=== PATIENT | male | born 1975 | race Caucasian/White ===

== ENCOUNTER 2019-12-02 21:37 | Emergency (ER) | payer OTHER, SELFPAY ==
[2019-12-02] MEDS ORDERED: ONDANSETRON 4 MG/2 ML VIAL ONE (22:29)
[2019-12-02] MEDS ORDERED: MORPHINE 4 MG/ML SYR ONE ×2 (22:29→23:30)
[2019-12-02] MEDS ORDERED: PANTOPRAZOLE 40 MG INJ ONE (22:29)
[2019-12-02 22:35] LABS: Absolute Lymphocytes (CBC) 1.3 K/uL (0.7-4.9); Basophils % 0.2 % (0-1.3); Hematocrit 48.7 % (39.6-49.0); Lymphocytes % 11.5 % (15.3-44.8); MPV 9.9 fL (7.6-11.3); RBC Red Blood Cell Count 5.33 M/uL (4.33-5.43)
[2019-12-02 22:53] LABS: Protime INR 0.93
[2019-12-02 23:52] LABS: Urine Bacteria <20 /HPF (NONE SEEN); Urine Culture Reflex Order NOT NEEDED; Urine RBC <5 /HPF (NONE SEEN)
[2019-12-02 23:54] LABS: ALT/SGPT 86 U/L (12-78); Albumin 3.7 g/dL (3.4-5.0); Alkaline Phosphatase 96 U/L (45-117); BUN Blood Urea Nitrogen 22 mg/dL (7-18); Bicarbonate 23 mmol/L (21-32); Bilirubin Direct < 0.1 mg/dL (0-0.2); Bilirubin Total 0.4 mg/dL (0.2-1.0); Glucose Level 211 mg/dL (74-106); Lipase 207 U/L (73-393); Magnesium 2.1 mg/dL (1.8-2.4); Protein, Total 7.1 g/dL (6.4-8.2); Sodium Level 139 mmol/L (136-145); Troponin (Emerg Dept Use Only) < 0.02 ng/mL (0.0-0.045)
[2019-12-02 23:55] LABS: AST/SGOT 25 U/L (15-37); Potassium 3.7 mmol/L (3.5-5.1)
--- NOTE | 2019-12-03 01:17 | ER ---
Nurse's Notes [facility] Name: Nj Hein Age: 44 yrs Sex: Male : 1975 Arrival Date: 12/02/2019 Time: 21:39 Bed 24 Private MD: Diagnosis: Upper abdominal pain, unspecified Presentation: 12/02 21:42 Presenting complaint: Patient states: RUQ pain started yesterday. Reports severe ca1 nausea. Denies fever, vomiting and diarrhea. History of pancreatitis and gall stones. Transition of care: patient was not received from another setting of care. Onset of symptoms was December 02, 2019. Risk Assessment: Do you want to hurt yourself or someone else? Patient reports no desire to harm self or others. Initial Sepsis Screen: Does the patient meet any 2 criteria? No. Patient's initial sepsis screen is negative. Does the patient have a suspected source of infection? No. Patient's initial sepsis screen is negative. Care prior to arrival: None. 21:42 Method Of Arrival: Ambulatory ca1 21:42 Acuity: CLARENCE 3 ca1 Historical: - Allergies: 21:48 No Known Allergies; ca1 - Home Meds: 21:48 allopurinol 300 mg Oral tab 1 tab once daily [Active]; Nexium 40 mg Oral cpDR 1 cap ca1 once daily [Active]; colchicine 0.6 mg Oral cap 1 cap once daily [Active]; amlodipine 10 mg tab 1 tab once daily [Active]; glipizide 5 mg Oral tab 1 tab 2 times per day [Active]; Lisinopril Oral [Active]; fenofibrate oral oral [Active]; Lipitor Oral [Active]; rosuvastatin oral oral [Active]; - PMHx: 21:48 Gout; Hyperlipidemia; Diabetes - NIDDM; CAD; Pancreatitis; ca1 - PSHx: 21:48 Heart stents; ca1 - Immunization history:: Adult Immunizations up to date, Flu vaccine is not up to date. - Social history:: Smoking status: Patient uses tobacco products, smokes one pack cigarettes per day. - Ebola Screening: : Patient negative for fever greater than or equal to 101.5 degrees Fahrenheit, and additional compatible Ebola Virus Disease symptoms Patient denies exposure to infectious person Patient denies travel to an Ebola-affected area in the 21 days before illness onset No symptoms or risks identified at this time. Screenin:08 Abuse screen: Denies threats or abuse. Denies injuries from another. Nutritional mg2 screening: No deficits noted. Tuberculosis screening: No symptoms or risk factors identified. Fall Risk IV access (20 points). Assessment: 23:06 General: Appears in no apparent distress. comfortable, Behavior is calm, cooperative. mg2 Pain: Complains of pain in abdomen Pain radiates to back Pain currently is 9 out of 10 on a pain scale. Quality of pain is described as aching, Pain began gradually, Is intermittent. Neuro: Level of Consciousness is awake, alert, obeys commands, Oriented to person, place, time, situation. Cardiovascular: Capillary refill < 3 seconds Patient's skin is warm and dry. Respiratory: Airway is patent Respiratory effort is even, unlabored, Respiratory pattern is regular, symmetrical. GI: Bowel sounds present X 4 quads. Abd is soft X 4 quads Abdomen is tender to palpation Reports upper abdominal pain, nausea. : No signs and/or symptoms were reported regarding the genitourinary system. EENT: No signs and/or symptoms were reported regarding the EENT system. Derm: Skin is intact, is healthy with good turgor, Skin is pink, warm \T\ dry. normal. Musculoskeletal: Circulation, motion, and sensation intact. Capillary refill < 3 seconds. 23:29 Reassessment: Patient appears in no apparent distress at this time. Patient and/or mg2 family updated on plan of care and expected duration. Pain level reassessed. Patient is alert, oriented x 3, equal unlabored respirations, skin warm/dry/pink. patient is still in pain, provider informed and ordered to give more pain medicine. 12/03 00:40 Reassessment: Patient appears in no apparent distress at this time. Patient and/or dm5 family updated on plan of care and expected duration. Pain level reassessed. Patient is alert, oriented x 3, equal unlabored respirations, skin warm/dry/pink. pt states he is still in pain. Provider notified. Pt offered Toradol or a GI cocktail. Pt refused. Offered patient glycerin swabs for dry mouth but patient refused. Pt had requested ice chips but provider denied until we get all results back. Vital Signs: 12/02 21:48 BP 142 / 82; Pulse 92; Resp 19 S; Temp 97.7(O); Pulse Ox 96% on R/A; Weight 108.86 kg ca1 (R); Height 6 ft. 0 in. (182.88 cm) (R); Pain 10/10; 23:09 Pulse 77; Resp 18; Temp 98; Pulse Ox 96% on R/A; mg2 23:30 BP 130 / 78; Pulse 75; Resp 18; Temp 98; Pulse Ox 97% on 2 lpm NC; mg2 12/03 00:45 BP 123 / 74; Pulse 65; Resp 18; Pulse Ox 97% on R/A; dm5 12/02 21:48 Body Mass Index 32.55 (108.86 kg, 182.88 cm) ca1 ED Course: 12/02 21:39 Patient arrived in ED. cl3 21:44 Triage completed. ca1 21:48 Arm band placed on right wrist. ca1 21:50 Pedro Michel PA is PHCP. cp 21:50 Pedro Clarke MD is Attending Physician. cp 22:07 Initial lab(s) drawn, by me, sent to lab. Inserted saline lock: 20 gauge in right lt1 antecubital area, using aseptic technique. 22:24 Christopher Quarles, RN is Primary Nurse. mg2 22:44 CXR XRAY In Process Unspecified. EDMS 23:08 Patient has correct armband on for positive identification. nurse monitoring on. Pulse mg2 ox on. NIBP on. Door closed. Warm blanket given. 23:09 US Abdomen Limited In Process Unspecified. EDMS 23:09 No provider procedures requiring assistance completed. mg2 23:12 Radiology exam delayed due to lab results not completed at this time. (BUN/Creatinine). kw1 23:27 Radiology exam delayed due to lab results not completed at this time. (BUN/Creatinine). kw1 23:47 Radiology exam delayed due to lab results not completed at this time. (BUN/Creatinine). kw1 23:59 Report given to JENNIFER Weinberg. mg2 12/03 01:57 CT Abd/Pelvis - IV Contrast Only In Process Unspecified. EDMS Administered Medications: 12/02 22:31 Drug: Zofran 4 mg Route: IVP; Site: right antecubital; mg2 23:21 Follow up: Response: No adverse reaction; Marked relief of symptoms mg2 22:31 Drug: morphine 4 mg Route: IVP; Site: right antecubital; mg2 23:20 Follow up: Response: No adverse reaction; Marked relief of symptoms mg2 22:31 Drug: ProTONIX 40 mg Route: IVP; Site: right antecubital; mg2 23:20 Follow up: Response: No adverse reaction mg2 22:59 Drug: NS 0.9% 1000 ml Route: IV; Rate: 1000 ml/hr; Site: right antecubital; mg2 23:29 Drug: morphine 4 mg Route: IVP; Site: right antecubital; mg2 12/03 00:01 Follow up: Response: No adverse reaction; RASS: Alert and Calm (0) mg2 Outcome: 01:03 Discharge ordered by MD. wilson 01:32 Patient left the ED. dm5 Signatures: Dispatcher [employer] EDOpal Alfred, RN RN dm5 Pedro Michel PA PA cp Wilhelm, Kimberly kw1 Christopher Quarles RN RN mg2 Joceline Harris RN RN ca1 Abdi, Anna 1 Gonzalo Delgado cl3 Corrections: (The following items were deleted from the chart) 12/02 21:55 21:42 Presenting complaint: Patient states: RUQ pain started yesterday. Reports severe ca1 nausea. Denies fever, vomiting and diarrhea ca1 12/03 00:01 12/02 23:59 Report given to KAREEN eWinberg mg2 mg2
--- NOTE | 2019-12-03 01:23 | EDPHYS ---
Physician Documentation [facility] Name: Nj Hein Age: 44 yrs Sex: Male : 1975 Arrival Date: 12/02/2019 Time: 21:39 Bed 24 Private MD: Pedro Cisneros HPI: 12/02 22:00 This 44 yrs old Male presents to ER via Ambulatory with complaints of cp Abdominal Pain. 22:00 The patient presents with abdominal pain in the epigastric area, in the upper abdomen. cp 22:00 Onset: The symptoms/episode began/occurred yesterday. Associated signs and symptoms: cp Pertinent positives: nausea, Pertinent negatives: blood in stools, chest pain, constipation, diarrhea, fever, palpitations, shortness of breath, testicular pain, vomiting. 22:00 The symptoms are described as achy, intermittent. cp 22:00 The symptoms radiate to back. The patient has experienced similar episodes in the past, cp Patient reports history of gallstones and pancreatitis. Denies history of gallbladder removal. Historical: - Allergies: 21:48 No Known Allergies; ca1 - Home Meds: 21:48 allopurinol 300 mg Oral tab 1 tab once daily [Active]; Nexium 40 mg Oral cpDR 1 cap ca1 once daily [Active]; colchicine 0.6 mg Oral cap 1 cap once daily [Active]; amlodipine 10 mg tab 1 tab once daily [Active]; glipizide 5 mg Oral tab 1 tab 2 times per day [Active]; Lisinopril Oral [Active]; fenofibrate oral oral [Active]; Lipitor Oral [Active]; rosuvastatin oral oral [Active]; - PMHx: 21:48 Gout; Hyperlipidemia; Diabetes - NIDDM; CAD; Pancreatitis; ca1 - PSHx: 21:48 Heart stents; ca1 - Immunization history:: Adult Immunizations up to date, Flu vaccine is not up to date. - Social history:: Smoking status: Patient uses tobacco products, smokes one pack cigarettes per day. - Ebola Screening: : Patient negative for fever greater than or equal to 101.5 degrees Fahrenheit, and additional compatible Ebola Virus Disease symptoms Patient denies exposure to infectious person Patient denies travel to an Ebola-affected area in the 21 days before illness onset No symptoms or risks identified at this time. ROS: 22:05 Abdomen/GI: Positive for abdominal pain, nausea, Negative for vomiting, diarrhea, cp constipation, black/tarry stool, rectal bleeding. 22:05 Eyes: Negative for injury, pain, redness, and discharge. cp 22:05 Constitutional: Negative for body aches, chills, fever, poor PO intake. 22:05 ENT: Negative for drainage from ear(s), ear pain, sore throat, difficulty swallowing, difficulty handling secretions. 22:05 Cardiovascular: Negative for chest pain, palpitations. 22:05 Respiratory: Negative for cough, shortness of breath, wheezing. 22:05 Back: Positive for radiated pain. 22:05 : Negative for urinary symptoms. 22:05 Neuro: Negative for altered mental status, headache, weakness. 22:05 All other systems are negative. Exam: 22:12 Constitutional: The patient appears in no acute distress, alert, awake, cp non-diaphoretic, non-toxic, well developed, well nourished, obese. 22:12 Head/Face: Normocephalic, atraumatic. cp 22:12 Constitutional: The patient appears uncomfortable. 22:12 Eyes: Periorbital structures: appear normal, Conjunctiva: normal, no exudate, no injection, Sclera: no appreciated abnormality, Lids and lashes: appear normal, bilaterally. 22:12 ENT: External ear(s): are unremarkable, Nose: is normal, Mouth: Lips: moist, Oral mucosa: pink and intact, moist, Posterior pharynx: is normal, airway is patent, no erythema, no exudate. 22:12 Chest/axilla: Inspection: normal, Palpation: is normal, no crepitus, no tenderness. 22:12 Cardiovascular: Rate: normal, Rhythm: regular, Heart sounds: murmur, not appreciated, Edema: is not appreciated, JVD: is not appreciated. 22:12 Respiratory: the patient does not display signs of respiratory distress, Respirations: normal, no use of accessory muscles, no retractions, no splinting, no tachypnea, labored breathing, is not present, Breath sounds: are clear throughout, no decreased breath sounds, no stridor, no wheezing. 22:12 Abdomen/GI: Inspection: obese Bowel sounds: active, all quadrants, Palpation: soft, in all quadrants, moderate abdominal tenderness, in the epigastric area and right upper quadrant, rebound tenderness, is not appreciated, voluntary guarding, is elicited in the epigastric area and right upper quadrant. 22:12 Skin: no rash present. 22:12 Neuro: Orientation: to person, place \T\ time. Mentation: is normal, Motor: moves all fours, strength is normal. 23:10 ECG was reviewed by the Attending Physician. cp Vital Signs: 21:48 BP 142 / 82; Pulse 92; Resp 19 S; Temp 97.7(O); Pulse Ox 96% on R/A; Weight 108.86 kg ca1 (R); Height 6 ft. 0 in. (182.88 cm) (R); Pain 10/10; 23:09 Pulse 77; Resp 18; Temp 98; Pulse Ox 96% on R/A; mg2 23:30 BP 130 / 78; Pulse 75; Resp 18; Temp 98; Pulse Ox 97% on 2 lpm NC; mg2 12/03 00:45 BP 123 / 74; Pulse 65; Resp 18; Pulse Ox 97% on R/A; dm5 12/02 21:48 Body Mass Index 32.55 (108.86 kg, 182.88 cm) ca1 MDM: 12/02 21:50 Patient medically screened. quintin 22:00 Differential diagnosis: acute coronary syndrome, bowel obstruction, cholecystitis, cp Cholelithiasis, gastritis, gastroesophageal reflux disease, non-specific abd pain, pancreatitis, Peptic Ulcer Disease, Perf. Duodenal Ulcer, Perf. Gastric Ulcer. 12/03 00:41 ED course: Patient refuses Toradol and GI cocktail at this time for pain. cp 01:03 Data reviewed: vital signs, nurses notes, lab test result(s), EKG, radiologic studies, cp CT scan, plain films, ultrasound. 01:03 Test interpretation: by ED physician or midlevel provider: ECG, plain radiologic cp studies, chest xray negative for infiltrates. 01:03 Counseling: I had a detailed discussion with the patient and/or guardian regarding: the cp historical points, exam findings, and any diagnostic results supporting the discharge/admit diagnosis, the presence of at least one elevated blood pressure reading (>120/80) during this emergency department visit, lab results, radiology results, the need for outpatient follow up, a family practitioner, to return to the emergency department if symptoms worsen or persist or if there are any questions or concerns that arise at home. Response to treatment: the patient's symptoms have markedly improved after treatment, and as a result, I will discharge patient. Special discussion: Based on the patient's Hx, exam, and Dx evaluation, there is no indication for emergent surgery or inpatient Tx. It is understood by the patient/guardian that if the Sx's persist or worsen they need to return immediately for re-evaluation. ED course: VSS. Labs reviewed and lipase wnl. CT and US negative for acute findings. Will discharge to home for continued monitoring. 12/02 21:54 Order name: Basic Metabolic Panel; Complete Time: 23:59 ca1 12/02 23:59 Interpretation: Normal except: GLUC 211; BUN 22; GFR 72. cp 12/02 21:54 Order name: CBC with Diff; Complete Time: 23:08 ca1 12/02 23:08 Interpretation: Normal except: WBC 11.4; LIDIA% 82.0; LYM% 11.5; NEUT A 9.4. cp 12/02 21:54 Order name: Creatinine for Radiology; Complete Time: 23:59 ca1 12/02 21:54 Order name: Hepatic Function; Complete Time: 23:59 ca1 12/03 00:00 Interpretation: Normal except: ALT 86. cp 12/02 21:54 Order name: Lipase; Complete Time: 23:59 ca1 12/03 00:00 Interpretation: LIP 207; Reviewed. cp 12/02 22:08 Order name: Urine Microscopic Only; Complete Time: 23:59 cp 12/02 22:16 Order name: US Abdomen Limited cp 12/02 22:25 Order name: PT-INR; Complete Time: 23:08 cp 12/02 22:25 Order name: Ptt, Activated; Complete Time: 23:08 cp 12/02 22:57 Order name: Troponin (Emerg Dept Use Only); Complete Time: 23:59 EDMS 12/02 22:57 Order name: Magnesium; Complete Time: 23:59 EDMS 12/03 01:08 Order name: Urine Dipstick--Ancillary (enter results) mt 12/02 21:54 Order name: IV Saline Lock; Complete Time: 22:07 ca1 12/02 21:54 Order name: Labs collected and sent; Complete Time: 22:07 ca1 12/02 22:08 Order name: Urine Dipstick-Ancillary (obtain specimen); Complete Time: 23:06 cp 12/02 22:16 Order name: CT Abd/Pelvis - IV Contrast Only cp 12/02 22:16 Order name: CXR XRAY cp 12/02 22:16 Order name: EKG; Complete Time: 22:18 cp 12/02 22:16 Order name: EKG - Nurse/Tech; Complete Time: 23:06 cp EC/05 23:10 Rate is 84 beats/min. Rhythm is regular. SD interval is normal. QRS interval is cp prolonged at 120 msec. QT interval is normal. Interpreted by me. Reviewed by me. Administered Medications: 22:31 Drug: Zofran 4 mg Route: IVP; Site: right antecubital; mg2 23:21 Follow up: Response: No adverse reaction; Marked relief of symptoms mg2 22:31 Drug: morphine 4 mg Route: IVP; Site: right antecubital; mg2 23:20 Follow up: Response: No adverse reaction; Marked relief of symptoms mg2 22:31 Drug: ProTONIX 40 mg Route: IVP; Site: right antecubital; mg2 23:20 Follow up: Response: No adverse reaction mg2 22:59 Drug: NS 0.9% 1000 ml Route: IV; Rate: 1000 ml/hr; Site: right antecubital; mg2 23:29 Drug: morphine 4 mg Route: IVP; Site: right antecubital; mg2 12/03 00:01 Follow up: Response: No adverse reaction; RASS: Alert and Calm (0) mg2 Disposition: 09:38 Co-signature as Attending Physician, Pedro Clarke MD I agree with the assessment and quintin plan of care. Disposition: 12/03/19 01:03 Discharged to Home. Impression: Upper abdominal pain, unspecified. - Condition is Stable. - Discharge Instructions: Abdominal Pain, Adult. - Prescriptions for Bentyl 20 mg Oral Tablet - take 2 tablets by ORAL route every 6 hours As needed; 30 tablet. Zofran 4 mg Oral Tablet - take 1 tablet by ORAL route every 12 hours As needed; 20 tablet. - Medication Reconciliation Form, Thank You Letter, Antibiotic Education, Prescription Opioid Use form. - Follow up: Private Physician; When: 2 - 3 days; Reason: Recheck today's complaints. - Problem is new. - Symptoms have improved. Signatures: Dispatcher [facility] Opal Durand, RN RN dm5 Pedro Clarke MD MD cha Page, Corey, PA PA cp Christopher Quarles, RN RN mg2 Joceline Harris RN RN ca1 Corrections: (The following items were deleted from the chart) 12/02 22:55 22:26 MAGNESIUM+C.LAB.BRZ ordered. EDOH EDOH 22:57 22:17 TROPONIN I+C.LAB.BRZ ordered. [facility] 12/03 01:32 01:03 12/03/2019 01:03 Discharged to Home. Impression: Upper abdominal pain, dm5 unspecified. Condition is Stable. Forms are Medication Reconciliation Form, Thank You Letter, Antibiotic Education, Prescription Opioid Use. Follow up: Private Physician; When: 2 - 3 days; Reason: Recheck today's complaints. Problem is new. Symptoms have improved. cp
[2019-12-03 01:54] LABS: Urine Blood NEGATIVE (NEG); Urine Glucose 3+ (NEG); Urine Protein NEGATIVE (NEG)
[2019-12-03 02:00] VITALS: TEMP 98
[2019-12-03 02:06] VITALS: O2SAT 97
[2019-12-03 02:07] VITALS: BP 123/74
--- NOTE | 2019-12-03 05:30 | EKG ---
Test Date: 2019-12-02 Test Time: 23:03:37 Youth Liaison Officer: MEASUREMENT RESULTS: Intervals: Rate: 84 [place]: 146 QRSD: 120 QT: 376 QTc: 444 [place]: P: 27 [place]: 146 QRS: -54 T: 14 INTERPRETIVE STATEMENTS: Normal sinus rhythm Right bundle branch block Left axis Inferior infarct, age undetermined Cannot rule out Anterior infarct, age undetermined Abnormal ECG No previous ECG available for comparison Electronically Signed On 12-03-19 05:30:01 SAFETY ATTENDANT by Tariq Lei
--- NOTE | 2019-12-03 08:26 | RAD REPORT ---
EXAM DESCRIPTION: RAD - Chest Single View - 12/02/2019 10:42 pm CLINICAL HISTORY: epigastric pain Chest pain. COMPARISON: No comparisons FINDINGS: Portable technique limits examination quality. The lungs are grossly clear. The heart is mildly prominent in size. No displaced fractures. IMPRESSION: No acute intrathoracic process suspected.
--- NOTE | 2019-12-03 08:27 | RAD REPORT ---
EXAM DESCRIPTION: US - Abdomen Exam Limited - 12/02/2019 11:07 pm CLINICAL HISTORY: EPIGASTRIC PAIN COMPARISON: No comparisons FINDINGS: The gallbladder demonstrates no gallstones. No pericholecystic fluid or gallbladder wall t hickening. The common bile duct is normal measuring 4 mm. The liver demonstrates diffuse fatty liver. IMPRESSION: Negative gallbladder/ biliary tree findings. Fatty liver.
--- NOTE | 2019-12-03 10:34 | RAD REPORT ---
EXAM DESCRIPTION: Abdomen Pelvis W Contrast CLINICAL HISTORY: 44-year-old male with abdominal pain. COMPARISON: None. TECHNIQUE: CT of the abdomen and pelvis was performed following intravenous administration of contra st. Oral contrast was not administered. Multiplanar reformatted images were provided. This exam was p erformed according to our departmental dose optimization program which includes use of automated expo sure control, adjustment of the mA and/or kV according to patient size and/or use of iterative recons truction technique. FINDINGS: Chest: Evaluation through the lung bases reveals no focal opacity, pleural effusion or pne umothorax. Heart size is within normal limits. No pericardial effusion. Abdomen and pelvis: Slightly full appearance of the head of the pancreas. Please correlate with labor atory values. The liver, gallbladder, pancreas, spleen, bilateral kidneys and bilateral adrenal gland s are within normal limits. Subcentimeter foci of hypoattenuation present within the RIGHT kidney sug gestive of simple renal cysts, however too small to accurately characterize. The vessels are patent and normal in caliber. No abdominopelvic lymph nodes are noted to be pathologically enlarged by CT measurement criteria. The bowel is within normal limits without abnormal bowel wall thickness or bowel dilation. No free air. No free abdominopelvic fluid collections. The appendix is within normal limits. The osseous structures are within normal limits. IMPRESSION: 1. No specific acute intra-abdominal findings are noted to suggest etiology of the patie nt's abdominal pain. 2. Slightly full appearance of the head of the pancreas. Please correlate with laboratory values for the possibility of pancreatitis. Electronically signed by: Jody Ledesma MD 12/03/2019 12:52 AM CHEMICAL STRENGTH TESTER Due to temporary technical issues with the PACS/Fluency reporting system, reports are being signed by the in house radiologist as a courtesy to ensure prompt reporting. The interpreting radiologist is f ully responsible for the content of the report.
== END 2019-12-03 01:32 | disposition home or self-care (01) ==
LOC: ER 21:37
DX: R10.10 Upper abdominal pain, unspecified (principal); F17.210 Nicotine dependence, cigarettes, uncomplicated; E78.5 Hyperlipidemia, unspecified; E11.9 Type 2 diabetes mellitus without complications; Z95.818 Presence of other cardiac implants and grafts
CPT/HCPCS: 93005; 85025; 80048; 36415; 83735; 85610; 80076; 85730; 81003; 81015; 84484; 83690; 74177; 71045; 76705; 96375; 96374; 99284; Q9967; C9113; J2405